=== PATIENT | male | born 1965 | race Caucasian/White ===

== ENCOUNTER → 2023-06-07 | Outpatient (CLI) | payer OTHER ==
[~2023-06-07] VITALS: Ht 188 cm; Wt 84.1 kg
[2023-06-07 08:50] VITALS: BP 125/83; PULSE 73; TEMP 98.1
== END ==
LOC: COL.ER 07:51
DX: Z29.14 Encounter for prophylactic rabies immune globulin (principal); Z28.310 Unvaccinated for COVID-19